=== PATIENT | female | born 1940 | race Caucasian/White ===

== ENCOUNTER 2021-11-30 21:16 | Emergency (ER) | payer MEDICARE ==
[~2021-11-30] VITALS: Ht 157.5 cm; Wt 46.3 kg
[~2021-11-30 21:16] MED LIST: ASPI-611 PO; CLOP75TA15 PO; LISI2.5T89 PO; LORA10TA45 PO; MAGN500T2 PO; ROSU10TA2 PO
[2021-11-30 22:08] VITALS: BP 237/118
[2021-11-30] MEDS ORDERED: LIDOcaine 1% W/epiNEPHrine 1:100,000 20ml vial SQ ONE (22:55)
--- NOTE | 2021-12-01 00:20 | NUR ---
Patient has had high BP's in the 220's while here. Dr. Swann aware. Patient states will come down after leaving. Dr. Swann states okay with discharge.
== END 2021-12-01 00:49 | disposition home or self-care (01) ==
LOC: ER 21:18
DX: S01.01XA Laceration without foreign body of scalp, initial encounter (principal); S60.052A Contusion of left little finger without damage to nail, initial encounter; S09.90XA Unspecified injury of head, initial encounter; Z88.8 Allergy status to other drugs, medicaments and biological substances; Z79.82 Long term (current) use of aspirin; Z79.899 Other long term (current) drug therapy; W22.8XXA Striking against or struck by other objects, initial encounter; Y93.89 Activity, other specified; Y92.015 Private garage of single-family (private) house as the place of occurrence of the external cause; Y99.8 Other external cause status
CPT/HCPCS: 12002; 70450; 72125; 73140; 99284